=== PATIENT | female | born 1955 | race Asian ===

== ENCOUNTER 2017-09-26 22:54 | Emergency (ER) | payer OTHER ==
[~2017-09-26] VITALS: Ht 157.5 cm; Wt 58.9 kg
[~2017-09-26 22:54] MED LIST: BACI500O9 TOP; CEPH500C3 PO; RAMI10CA PO; SYNT25TA
[2017-09-26 22:59] VITALS: BP 202/102; PULSE 100; RESP 18; TEMP 98.7; O2SAT 97
[2017-09-26 23:10] VITALS: BP 180/109
--- NOTE | 2017-09-27 00:19 | RADRPT ---
EXAM DATE/TIME: 09/27/2017 00:02 [facility] COMPARISON: No previous studies available for comparison. INDICATIONS : Left lower chest pain after falling. MEDICAL HISTORY : None. SURGICAL HISTORY : None. ENCOUNTER: Initial ACUITY: 1 day PAIN SCORE: 4/10 LOCATION: Left lower chest FINDINGS: Multiple views of the left ribs were performed. There is questionable ninth inferolateral rib fractu re. No destructive lesions or areas of periosteal thickening are seen. Expiratory view of the chest is negative for pneumothorax. The mediastinal structures are midline. CONCLUSION: Questionable ninth rib fracture. No pneumothorax. Lj Aguilar MD on September 27, 2017 at 0:16 Board Certified Radiologist. This report was verified electronically.
[2017-09-27] MEDS ORDERED: KETOROLAC TROMETHAMINE 30 MG/ML (IVP) VIAL IV PUSH ONE (00:45)
[2017-09-27] MEDS ORDERED: SODIUM CHLORIDE 0.9% FLUSH 10 ML FLUSH IVF PRN (00:45)
--- NOTE | 2017-09-27 00:57 | PD ---
HPI Chief Complaint: Injury Time Seen by Provider: 23:58 Travel History International Travel<30 days: No Contact w/Intl Traveler<30days: No Traveled to known affect area: No History of Present Illness HPI 61-year-old female presents to the emergency department for evaluation of left- sided rib upper abdomen pain after a fall reportedly at home. Injury occurred approximately 10 PM. Patient states she had been dizzy throughout the day since approximately 1 PM when she had blood collected/drawn at her [employer]. Patient states she also worked out of doors today and may have become dehydrated. Patient takes medication for hypertension and thyroid dysfunction and takes no other medications. Patient denies tobacco use alcohol use and substance use. Patient rates chest wall pain as moderate to severe. Patient denies shortness of breath although patient does note increased pain with deep breathing. Patient denies any abdominal pain or flank pain. Patient denies other injury. Patient is not aware whether or not she had loss of consciousness. at bedside reports that he was with her at the time that she fell. reports that they live in a large home and that he could not hear her fall. Patient denies other concerns or complaints. PFSH Past Medical History Narrative Medical Hypertension hypothyroidism; eye surgery tonsillectomy; no tobacco use no alcohol use; nursing notes reviewed Diminished Hearing: No Hypertension: Yes (Dx 2004, usually well controlled with meds) Immunizations Current: No Renal Failure: Yes (Pt has sometype of kidney disfunction, is unable to express specifics) Thyroid Disease: Yes (Hyperthyroid, contolled with medication) Menopausal: Yes : 3 Para: 3 Miscarriage: 0 : 0 Past Surgical History Eye Surgery: Yes (Plastic surgery to remove wrinkles around her eyes) Tonsillectomy: Yes Social History Alcohol Use: No Tobacco Use: No Substance Use: No Allergies-Medications (Allergen,Severity, Reaction): Coded Allergies: No Known Allergies (Verified , 05/10/15) Reported Meds & Prescriptions Reported Meds & Active Scripts Active Clonidine (Clonidine HCl) 0.1 Mg Tab 0.1 Mg PO Q12HR NEB PRN Percocet (Oxycodone-Acetaminophen) 5-325 mg Tab 1 Tab PO Q6H PRN Bacitracin 500 Mg/Gm Oin 1 Applic TOP BID TO AFFECTED AREA (S) Keflex (Cephalexin Monohydrate) 500 Mg Cap 500 Mg PO BID Reported Altace (Ramipril) 10 Mg Cap 10 Mg PO DAILY Synthroid (Levothyroxine Sodium) 25 Mcg Tab 75 Mcg DAILY UNKNOWN DOSE Review of Systems Except as stated in HPI: all other systems reviewed are Neg General / Constitutional: No: Fever, Chills Eyes: No: Visual changes HENT: No: Headaches, Neck Pain Cardiovascular: Positive: Chest Pain or Discomfort, No: Diaphoresis, Syncope Respiratory: Positive: Pleuritic Pain Gastrointestinal: No: Abdominal Pain Genitourinary: No: Flank Pain Musculoskeletal: No: Myalgias, Arthralgias Skin: No Rash Neurologic: No: Weakness, Dizziness, Syncope, Focal Abnormalities, Coordination Problem Psychiatric: No: Anxiety (Unknown) Hematologic/Lymphatic: No: Lymph Node Enlargement Physical Exam Narrative GENERAL: Well-developed well-nourished female in no acute respiratory distress GCS 15 SKIN: Warm and dry. HEAD: Atraumatic. Normocephalic. EYES: Pupils equal and round. No scleral icterus. No injection or drainage. ENT: No nasal bleeding or discharge. Mucous membranes pink and moist. NECK: Trachea midline. No JVD. No midline tenderness to direct palpation along the cervical spine. CARDIOVASCULAR: Regular rate and rhythm. Chest wall: Tenderness to direct palpation to the left anterior lateral lower chest wall with area of erythema without ecchymosis abrasion laceration or bony crepitus to palpation no subcutaneous emphysema to palpation. RESPIRATORY: No accessory muscle use. Clear to auscultation. Breath sounds equal bilaterally. GASTROINTESTINAL: Abdomen soft, non-tender, nondistended. Hepatic and splenic margins not palpable. MUSCULOSKELETAL: Extremities without clubbing, cyanosis, or edema. No obvious deformities. NEUROLOGICAL: Awake and alert. No obvious cranial nerve deficits. Motor grossly within normal limits. Five out of 5 muscle strength in the arms and legs. Normal speech. PSYCHIATRIC: Appropriate mood and affect; insight and judgment normal. Data Data Last Documented VS Vital Signs Date Time Temp Pulse Resp B/P (MAP) Pulse Ox O2 Delivery O2 Flow Rate FiO2 09/27/17 03:47 18 09/27/17 03:45 88 173/96 (121) 99 09/27/17 01:55 Room Air 09/26/17 22:59 98.7 Orders Orders Ribs, Uni (W/Exp Cxr-Min 3vw) (09/26/17 ) Electrocardiogram (09/27/17 00:43) Ckmb (Isoenzyme) Profile (09/27/17 00:43) Complete Blood Count With Diff (09/27/17 00:43) Comprehensive Metabolic Panel (09/27/17 00:43) Magnesium (Mg) (09/27/17 00:43) Prothrombin Time / Inr (Pt) (09/27/17 00:43) Act Partial Throm Time (Ptt) (09/27/17 00:43) Troponin I (09/27/17 00:43) Lipase (09/27/17 00:43) Ecg Monitoring (09/27/17 00:43) Iv Access Insert/Monitor (09/27/17 00:43) Oximetry (09/27/17 00:43) Sodium Chloride 0.9% Flush (Ns Flush) (09/27/17 00:45) Ketorolac Inj (Toradol Inj) (09/27/17 00:45) Alcohol (Ethanol) (09/27/17 00:43) Ct Brain W/O Iv Contrast(Rout) (09/27/17 ) Oxycodone-Acetamin 5-325 Mg (Percocet (09/27/17 02:15) Ondansetron Odt (Zofran Odt) (09/27/17 02:15) Ed Discharge Order (09/27/17 02:35) Potassium Chloride (Kcl) (09/27/17 02:45) Clonidine (Catapres) (09/27/17 03:15) Labs Laboratory Tests Test 09/27/17 00:55 White Blood Count 6.4 TH/MM3 Red Blood Count 4.60 MIL/MM3 Hemoglobin 11.4 GM/DL Hematocrit 33.8 % Mean Corpuscular Volume 73.4 FL Mean Corpuscular Hemoglobin 24.8 PG Mean Corpuscular Hemoglobin Concent 33.8 % Red Cell Distribution Width 17.6 % Platelet Count 245 TH/MM3 Mean Platelet Volume 9.3 FL Neutrophils (%) (Auto) 66.8 % Lymphocytes (%) (Auto) 25.4 % Monocytes (%) (Auto) 5.1 % Eosinophils (%) (Auto) 1.9 % Basophils (%) (Auto) 0.8 % Neutrophils # (Auto) 4.2 TH/MM3 Lymphocytes # (Auto) 1.6 TH/MM3 Monocytes # (Auto) 0.3 TH/MM3 Eosinophils # (Auto) 0.1 TH/MM3 Basophils # (Auto) 0.1 TH/MM3 CBC Comment AUTO DIFF Differential Comment AUTO DIFF CONFIRMED Platelet Estimate NORMAL Platelet Morphology Comment NORMAL Ovalocytes 1+ Prothrombin Time 10.0 SEC Prothromb Time International Ratio 1.0 RATIO Activated Partial Thromboplast Time 28.2 SEC Blood Urea Nitrogen 14 MG/DL Creatinine 0.71 MG/DL Random Glucose 127 MG/DL Total Protein 7.9 GM/DL Albumin 3.6 GM/DL Calcium Level 8.8 MG/DL Magnesium Level 2.2 MG/DL Alkaline Phosphatase 114 U/L Aspartate Amino Transf (AST/SGOT) 20 U/L Alanine Aminotransferase (ALT/SGPT) 20 U/L Total Bilirubin 0.4 MG/DL Sodium Level 138 MEQ/L Potassium Level 3.3 MEQ/L Chloride Level 104 MEQ/L Carbon Dioxide Level 27.1 MEQ/L Anion Gap 7 MEQ/L Estimat Glomerular Filtration Rate 84 ML/MIN Total Creatine Kinase 90 U/L Troponin I LESS THAN 0.02 NG/ML Lipase 143 U/L Ethyl Alcohol Level LESS THAN 3 MG/DL MDM Medical Decision Making Medical Screen Exam Complete: Yes Emergency Medical Condition: Yes Medical Record Reviewed: Yes Interpretation(s) EKG: Normal sinus rhythm rate [address] elevation injury pattern noted Last Impressions Head CT 09/27/17 0000 Signed Impressions: Service Date/Time: Wednesday, September 27, 2017 01:18 - CONCLUSION: No acute intracranial abnormality. Lj Aguilar MD Ribs X-Ray 09/26/17 0000 Signed Impressions: Service Date/Time: Wednesday, September 27, 2017 00:02 - CONCLUSION: Questionable ninth rib fracture. No pneumothorax. Lj Aguilar MD CBC & BMP Diagram 09/27/17 00:55 Total Protein 7.9, Albumin 3.6, Calcium Level 8.8, Magnesium Level 2.2, Alkaline Phosphatase 114, Aspartate Amino Transf (AST/SGOT) 20, Alanine Aminotransferase (ALT/SGPT) 20, Total Bilirubin 0.4 Vital Signs Date Time Temp Pulse Resp B/P (MAP) Pulse Ox O2 Delivery O2 Flow Rate FiO2 09/26/17 23:10 180/109 (132) 09/26/17 22:59 98.7 100 18 202/102 (135) 97 Troponin I: Less than 0.02, [place] Differential Diagnosis Chest wall contusion rib fracture pneumothorax splenic injury uncontrolled hypertension minor closed head injury syncope arrhythmia Narrative Course Patient placed on monitor and storage bin tender IV access obtain stat left rib x-ray obtained reveals no pneumothorax questionable ninth rib fracture; patient remains hypertensive patient administered Toradol 30 mg IV IV access obtained specimens collected and sent for resulting imaging studies including CT brain added Imaging study consistent with single rib fracture on the left nondisplaced without pneumothorax in view of patient's pain patient administered Percocet 5/ 3251 dose patient noted to have persistent elevation of blood pressure Due to ongoing elevated blood pressure patient given clonidine 0.1 mg dose Patient with good blood pressure control after pain medication and clonidine Patient stable for outpatient management provided prescription for Percocet and clonidine to use as needed Patient encouraged to follow-up with her primary care provider and return to the emergency department for any concerns Diagnosis Primary Impression: Rib fracture Qualified Codes: S22.32XA - Fracture of one rib, left side, initial encounter for closed fracture Additional Impression: HTN (hypertension) Referrals: Primary Care Physician 2 days Patient Instructions: General Instructions Additional Instructions: May take ibuprofen/Advil/Motrin every 6-8 hours as needed for pain associated with inflammation Return immediately to the nearest emergency department for sudden shortness of breath after forceful cough sneeze movement Follow-up with primary care provider Increase fluid hydration Take Percocet as prescribed as needed for pain associated with rib fracture Take clonidine as needed for breakthrough hypertension Med/Other Pt SpecificInfo: Prescription(s) given, No Change to Meds Scripts Clonidine (Clonidine) 0.1 Mg Tab 0.1 MG PO Q12HR NEB Y for SBP>180, DBP>95, #3 TAB 0 Refills Prov: Bela De Jesus MD 09/27/17 Oxycodone-Acetaminophen (Percocet) 5-325 mg Tab 1 TAB PO Q6H Y for PAIN, #7 TAB 0 Refills Prov: Bela De Jesus MD 09/27/17 Disposition: 01 DISCHARGE HOME Condition: Stable Bela De Jesus MD Sep 27, 2017 00:57
[2017-09-27 01:04] LABS: AUTOMATED NEUTROPHIL # 4.2 TH/MM3 (1.8-7.7); BASOPHIL # 0.1 TH/MM3 (0-0.2); BASOPHIL % 0.8 % (0.0-2.0); EOSINOPHIL # 0.1 TH/MM3 (0-0.4); EOSINOPHIL % 1.9 % (0.0-4.0); HEMATOCRIT 33.8 % (35.0-46.0); HEMOGLOBIN 11.4 GM/DL (11.6-15.3); LYMPH % 25.4 % (9.0-44.0); LYMPHOCYTE # 1.6 TH/MM3 (1.0-4.8); MEAN CELL VOLUME 73.4 FL (80.0-100.0); MEAN CORPUSCULAR HEMOGLOBIN 24.8 PG (27.0-34.0); MEAN CORPUSCULAR HGB CONC 33.8 % (32.0-36.0); MEAN PLATELET VOLUME 9.3 FL (7.0-11.0); MONO % 5.1 % (0.0-8.0); MONOCYTE # 0.3 TH/MM3 (0-0.9); NEUT % 66.8 % (16.0-70.0); PLATELET COUNT 245 TH/MM3 (150-450); RED CELL DISTRIBUTION WIDTH 17.6 % (11.6-17.2); WHITE BLOOD COUNT 6.4 TH/MM3 (4.0-11.0)
[2017-09-27 01:29] LABS: CHLORIDE 104 MEQ/L (98-107); SODIUM (NA) 138 MEQ/L (136-145)
[2017-09-27 01:31] LABS: OVALOCYTES 1+ (NORMAL)
[2017-09-27 01:33] LABS: ALBUMIN 3.6 GM/DL (3.4-5.0); CALCIUM 8.8 MG/DL (8.5-10.1)
[2017-09-27 01:34] LABS: BICARBONATE 27.1 MEQ/L (21.0-32.0); BLOOD UREA NITROGEN 14 MG/DL (7-18); GLUCOSE,RANDOM 127 MG/DL (74-106); MAGNESIUM 2.2 MG/DL (1.5-2.5)
[2017-09-27 01:36] LABS: ALT (GPT) 20 U/L (10-53); AST (GOT) 20 U/L (15-37); CREATININE 0.71 MG/DL (0.50-1.00); GLOMERULAR FILTRATION RATE 84 ML/MIN (>89)
[2017-09-27 01:38] LABS: TOTAL BILIRUBIN ADULT 0.4 MG/DL (0.2-1.0); TOTAL PROTEIN 7.9 GM/DL (6.4-8.2)
[2017-09-27 01:39] LABS: ALKALINE PHOSPHATASE 114 U/L (45-117)
[2017-09-27 01:42] LABS: TROPONIN I LESS THAN 0.02 NG/ML (0.02-0.05)
[2017-09-27 01:45] VITALS: BP 180/88; PULSE 85; RESP 16; O2SAT 100
[2017-09-27 01:55] VITALS: O2SAT 98
--- NOTE | 2017-09-27 02:13 | RADRPT ---
EXAM DATE/TIME: 09/27/2017 01:18 [facility] COMPARISON: No previous studies available for comparison. INDICATIONS : Trauma. Fall. Dizziness. RADIATION DOSE: 48.27 CTDIvol (mGy) MEDICAL HISTORY : None SURGICAL HISTORY : None. ENCOUNTER: Initial ACUITY: 1 day PAIN SCALE: 7/10 LOCATION: cranial TECHNIQUE: Multiple contiguous axial images were obtained of the head. Using automated exposure control and adj ustment of the mA and/or kV according to patient size, radiation dose was kept as low as reasonably a chievable to obtain optimal diagnostic quality images. DICOM format image data is available electro nically for review and comparison. FINDINGS: CEREBRUM: The ventricles are normal for age. No evidence of midline shift, mass lesion, hemorrhage or acute in farction. No extra-axial fluid collections are seen. POSTERIOR FOSSA: The cerebellum and brainstem are intact. The 4th ventricle is midline. The cerebellopontine angle i s unremarkable. EXTRACRANIAL: The visualized portion of the orbits is intact. SKULL: The calvaria is intact. No evidence of skull fracture. CONCLUSION: No acute intracranial abnormality. Lj Aguilar MD on September 27, 2017 at 2:11 Board Certified Radiologist. This report was verified electronically.
[2017-09-27] MEDS ORDERED: ONDANSETRON ODT 4 MG TAB PO ONE (02:15)
[2017-09-27] MEDS ORDERED: oxyCODONE/ACETAMINOPHEN 5 MG/325 MG TAB PO ONE (02:15)
[2017-09-27] MEDS ORDERED: POTASSIUM CHLORIDE 20 MEQ CONTROLLED RELEASE TAB PO ONE (02:45)
[2017-09-27] MEDS ORDERED: PERC5TAB12 PO (03:09)
[2017-09-27] MEDS ORDERED: CLON0.1T PO (03:10)
[2017-09-27] MEDS ORDERED: cloNIDine HCL 0.1 MG TAB PO ONE (03:15)
[2017-09-27 03:45] VITALS: BP 173/96
[2017-09-27 03:47] VITALS: RESP 18
--- NOTE | 2017-09-27 15:13 | EKG ---
Date Performed: 09/27/2017 Time Performed: 00:51:29 PTAGE: 61 years EKG: Sinus rhythm NORMAL ECG NO PREVIOUS TRACING DOCTOR: Porfirio Keyes Interpretating Date/Time 09/27/2017 15:10:20
== END 2017-09-27 03:47 | disposition home or self-care (01) ==
LOC: PHED 22:54
DX: S22.32XA Fracture of one rib, left side, initial encounter for closed fracture (principal); R42 Dizziness and giddiness; I10 Essential (primary) hypertension; E03.9 Hypothyroidism, unspecified; N19 Unspecified kidney failure; W19.XXXA Unspecified fall, initial encounter; Y92.009 Unspecified place in unspecified non-institutional (private) residence as the place of occurrence of the external cause; Z79.899 Other long term (current) drug therapy
CPT/HCPCS: 70450; 71101; 80053; 80307; 82550; 83690; 83735; 84484; 85025; 85610; 85730; 93005; 96374; 99285; J1885